=== PATIENT | male | born 1950 | race Caucasian/White ===

== ENCOUNTER → 2017-03-13 | Outpatient (CLI) | payer MEDICARE, OTHER ==
[~2017-03-13] MED LIST: ASPI-496 PO; ENAL5TAB PO; METH40TA3 PO
[2017-03-13 16:22] LABS: ASPARTATE AMINO TRANSFERASE 21 U/L (15-37); BLOOD UREA NITROGEN 16 mg/dL (7-18)
== END | disposition home or self-care (01) ==
LOC: STAR 15:10
PROVIDERS: ATTEND Internal Medicine Geriatric Medicine
DX: Z01.818 Encounter for other preprocedural examination (principal); K63.5 Polyp of colon
CPT/HCPCS: 36415; 80053; 93005

== ENCOUNTER 2017-03-17 08:04 | Day surgery (SDC) | payer MEDICARE, OTHER ==
[~2017-03-17] VITALS: Ht 180.3 cm; Wt 98.0 kg
[2017-03-17] MEDS ORDERED: LIDOCAINE 1%, 2ML ONE (08:42)
[2017-03-17] MEDS ORDERED: INDOCYANINE GREEN 25 MG VIAL ONE (08:43)
[2017-03-17] MEDS ORDERED: EPINEPHRINE SYRINGE 0.1 MG/ML, 10ML ONE (08:43)
[2017-03-17] MEDS ORDERED: FENTANYL PF 100 MCG/2ML ONE ×3 (08:55→10:51)
[2017-03-17] MEDS ORDERED: morphine SULFATE/PF 1 MG/ML, 10ML ONE (08:55)
[2017-03-17] MEDS ORDERED: BACITRACIN 50,000 UNIT ONE (08:56)
[2017-03-17] MEDS ORDERED: BUPIVACAINE/PF 0.5% ONE (08:56)
[2017-03-17] MEDS ORDERED: THROMBIN 5,000 UNIT VIAL TP ONE (08:56)
[2017-03-17] MEDS ORDERED: BUPIVACAINE/PF 0.25% ONE (08:57)
[2017-03-17] MEDS ORDERED: VANCOMYCIN 1,000 MG ONE (08:57)
[2017-03-17] MEDS ORDERED: EPINEPHRINE 1 MG/ML, 1ML ONE (08:57)
[2017-03-17] MEDS ORDERED: LIDOCAINE/PF 1%, 30ML ONE (09:02)
[2017-03-17] MEDS ORDERED: LACTATED RINGERS 1,000 ML IV SCH (09:06)
[2017-03-17] MEDS ORDERED: MIDAZOLAM 1 MG/ML, 2ML ONE ×4 (09:07→10:51)
[2017-03-17] MEDS ORDERED: SCOPOLAMINE PATCH, 1.5MG PATCH.TD72 TD ONE ×2 (09:08→10:50)
[2017-03-17] MEDS ORDERED: FENTANYL PF 250 MCG/5ML ONE ×2 (09:08→10:50)
[2017-03-17] MEDS ORDERED: LIDOCAINE 1%, 2ML SQ PRN (09:30)
[2017-03-17] MEDS ORDERED: MEPERIDINE/PF 25MG/0.5ML IVPush PRN ×2 (10:30→11:30)
[2017-03-17] MEDS ORDERED: ACETAMINOPHEN 325 MG TABLET PO PRN ×2 (10:30→11:30)
[2017-03-17] MEDS ORDERED: PROMETHAZINE 25 MG/ML, 1ML IV PRN (10:30)
[2017-03-17] MEDS ORDERED: OXYcodone 5 MG/5 ML ORAL.SOL UDC PO PRN ×2 (10:30→11:30)
[2017-03-17] MEDS ORDERED: ONDANSETRON 2MG/ML, 2ML IVPush PRN ×2 (10:30→11:30)
[2017-03-17] MEDS ORDERED: hydrALAzine 20 MG/ML, 1ML IV PRN (10:30)
[2017-03-17] MEDS ORDERED: HYDROmorphone 1 MG/ML, 1ML IV PRN ×2 (10:30→11:30)
[2017-03-17] MEDS ORDERED: FENTANYL PF 100 MCG/2ML IV PRN ×2 (10:30→11:30)
[2017-03-17] MEDS ORDERED: LABETALOL 5MG/ML, 20ML IV PRN (10:30)
[2017-03-17] MEDS ORDERED: KETOROLAC 30 MG/1 ML IV PRN (11:30)
[2017-03-17] MEDS ORDERED: KETAMINE 10 MG/ML, 20ML ONE (15:54)
[2017-03-17] MEDS ORDERED: PROPOFOL 10 MG/ML, 50ML ONE (15:54)
== END 2017-03-17 12:35 ==
LOC: OUT 08:04
PROVIDERS: ATTEND Internal Medicine Geriatric Medicine
DX: Z09 Encounter for follow-up examination after completed treatment for conditions other than malignant neoplasm (principal); D12.2 Benign neoplasm of ascending colon; D12.3 Benign neoplasm of transverse colon; D12.4 Benign neoplasm of descending colon; D12.5 Benign neoplasm of sigmoid colon; I10 Essential (primary) hypertension; F17.200 Nicotine dependence, unspecified, uncomplicated; Z87.19 Personal history of other diseases of the digestive system; Z79.82 Long term (current) use of aspirin
CPT/HCPCS: 45385; 45390; 88305; J0171; J2250; J2274; J2704; J3010; J3490; J7120; J3370

== ENCOUNTER 2017-04-28 07:36 | Day surgery (SDC) | payer MEDICARE ==
[~2017-04-28] VITALS: Ht 180.3 cm; Wt 98.9 kg
[2017-04-28] MEDS ORDERED: LACTATED RINGERS 1,000 ML IV SCH (08:58)
[2017-04-28] MEDS ORDERED: LIDOCAINE 1%, 2ML SQ PRN (09:00)
[2017-04-28 09:01] VITALS: BP 143/89
[2017-04-28] MEDS ORDERED: LIDOCAINE 1%, 2ML ONE (09:18)
[2017-04-28] MEDS ORDERED: EPINEPHRINE SYRINGE 0.1 MG/ML, 10ML ONE (11:08)
[2017-04-28] MEDS ORDERED: PROPOFOL 10 MG/ML, 50ML ONE (12:27)
[2017-04-28] MEDS ORDERED: LABETALOL 5MG/ML, 20ML IV PRN (14:00)
[2017-04-28] MEDS ORDERED: MEPERIDINE/PF 25MG/0.5ML IVPush PRN (14:00)
[2017-04-28] MEDS ORDERED: hydrALAzine 20 MG/ML, 1ML IV PRN (14:00)
[2017-04-28] MEDS ORDERED: ONDANSETRON 2MG/ML, 2ML IVPush PRN (14:00)
[2017-04-28] MEDS ORDERED: METOCLOPRAMIDE 5 MG/ML, 2ML IV PRN (14:00)
[2017-04-28] MEDS ORDERED: MIDAZOLAM 1 MG/ML, 2ML IV PRN (14:00)
[2017-04-28] MEDS ORDERED: HYDROmorphone 1 MG/ML, 1ML IV PRN (14:00)
[2017-04-28] MEDS ORDERED: FENTANYL PF 100 MCG/2ML IV PRN (14:00)
[2017-04-28] MEDS ORDERED: EPHEDRINE 50 MG/ML, 1ML IVPush PRN (14:00)
[2017-04-28] MEDS ORDERED: OXYcodone 5 MG/5 ML ORAL.SOL UDC PO PRN (14:00)
[2017-04-28] MEDS ORDERED: ALBUTEROL SULFATE 2.5 MG/3 ML NPPB PRN (14:00)
== END 2017-04-28 14:25 ==
LOC: OUT 07:36
PROVIDERS: ATTEND Internal Medicine Geriatric Medicine
DX: Z08 Encounter for follow-up examination after completed treatment for malignant neoplasm (principal); D12.2 Benign neoplasm of ascending colon; D12.3 Benign neoplasm of transverse colon; D12.4 Benign neoplasm of descending colon; D12.5 Benign neoplasm of sigmoid colon; F17.200 Nicotine dependence, unspecified, uncomplicated; I10 Essential (primary) hypertension; Z86.010 Personal history of colon polyps; Z72.89 Other problems related to lifestyle
CPT/HCPCS: 45385; 88305; J2704; J7120

== ENCOUNTER → 2017-07-31 | Outpatient (CLI) | payer MEDICARE | END | disposition home or self-care (01) | LOC: CFH 08:34 | PROVIDERS: ATTEND Specialist | DX: B18.2 Chronic viral hepatitis C (principal) | CPT/HCPCS: 76700 ==

== ENCOUNTER → 2018-12-10 | Outpatient (CLI) | payer MEDICARE | END | disposition home or self-care (01) | LOC: CFH 09:21 | PROVIDERS: ATTEND Nurse Practitioner | DX: Z12.2 Encounter for screening for malignant neoplasm of respiratory organs (principal); R91.1 Solitary pulmonary nodule; I25.10 Atherosclerotic heart disease of native coronary artery without angina pectoris; F17.210 Nicotine dependence, cigarettes, uncomplicated | CPT/HCPCS: G0297 ==

== ENCOUNTER 2020-06-02 17:56 | Emergency (ER) | payer MEDICARE ==
[~2020-06-02] VITALS: Ht 180.3 cm; Wt 105.2 kg
[~2020-06-02 17:56] MED LIST changes: -ENAL5TAB PO; +ENAL5TAB10 PO; +OXYC-302 PO
--- NOTE | 2020-06-02 18:29 | NUR ---
PT WITH C/O RLQ PAIN BEGINNIN 2PM YESTERDAY, INCREASED TODAY. PT DENIES V/D. PT WITH C/O NAUSEA. PT TO BP, CONT PULSE OX. ERMD IN TO EVAL PT, AWAITING ORDERS
[2020-06-02] MEDS ORDERED: SODIUM CHLORIDE 0.9% 1,000 ML IV ONE (18:30)
[2020-06-02] MEDS ORDERED: HYDROmorphone 1 MG/ML, 1ML INJ IVPush PRN (18:30)
[2020-06-02] MEDS ORDERED: ONDANSETRON 2MG/ML, 2ML IVPush ONE (18:30)
[2020-06-02] MEDS ORDERED: HYDROmorphone 1 MG/ML, 1ML INJ ONE (18:37)
[2020-06-02] MEDS ORDERED: ONDANSETRON 2MG/ML, 2ML ONE (18:37)
--- NOTE | 2020-06-02 18:42 | NUR ---
PIV INITIATED, PT MEDICATED PER OCT. 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
[2020-06-02 18:52] LABS: BASOPHILS # (AUTO) 0.02 x10^3/uL (0-0.1); BASOPHILS % (AUTO) 0 % (0-1); EOSINOPHILS # (AUTO) 0.07 x10^3/uL (0-0.4); EOSINOPHILS % (AUTO) 1 % (1-7); LYMPHOCYTES # (AUTO) 1.01 x10^3/uL (1-3.4); LYMPHOCYTES % (AUTO) 9 % (22-44); MD NO; MEAN CORPUSCULAR HEMOGLOBIN 30.5 pg (27.5-34.5); MEAN CORPUSCULAR HGB CONC 33.2 g/dL (33.2-36.2); MEAN PLATELET VOLUME 7.6 fL (7.4-10.4); MONOCYTES # (AUTO) 0.92 x10^3/uL (0.2-0.8); MONOCYTES % (AUTO) 9 % (2-9); NEUTROPHILS # (AUTO) 8.63 x10^3/uL (1.8-6.8); NEUTROPHILS % (AUTO) 81 % (42-75); PLATELET COUNT 229 x10^3/uL (130-400); RED BLOOD COUNT 5.17 x10^6/uL (4.38-5.82); RED CELL DISTRIBUTION WIDTH 13.7 % (9.4-14.8)
[2020-06-02] MEDS ORDERED: OMNIPAQUE 350 MG/ML, 100ML BOTTLE ONE (19:00)
[2020-06-02 19:01] LABS: ALANINE AMINOTRANSFERASE 22 U/L (12-78); ALBUMIN 3.8 g/dL (3.4-5.0); ANION GAP 5 mmol/L (5-15); CALCIUM 9.3 mg/dL (8.5-10.1); CHLORIDE 96 mmol/L (98-107); CREATININE 0.89 mg/dL (0.7-1.3)
--- NOTE | 2020-06-02 19:01 | NUR ---
BEDSIDE REPORT FROM TIMUR RN, PT RESTING ON GURNEY TALKING ON PHONE TO DAUGHTER, PT REPORTS PAIN 03/09, VSS, SON AT BS. ISAMAR, R[place].
[2020-06-02 19:04] LABS: ALKALINE PHOSPHATASE 117 U/L (45-117); BILIRUBIN,TOTAL 0.8 mg/dL (0.2-1.0); TOTAL PROTEIN 7.7 g/dL (6.4-8.2)
--- NOTE | 2020-06-02 19:07 | NUR ---
CT CALLED REGARDING IV PLACMENT, SAID THEY WOULD TRY TO USE IT, PT INFORMED, NAD, CALL LIGHT ON LAP, DENIES ADDITIONAL NEEDS AT THIS TIME. WCTM.
--- NOTE | 2020-06-02 19:52 | NUR ---
ASSIST RN: URINE SAMPLE OBTAINED AND SENT TO LAB.
[2020-06-02 20:02] LABS: MICROSCOPIC AUTO
[2020-06-02] MEDS ORDERED: METHYLNALTREXONE 12 MG/0.6 ML SYR SQ ONE ×2 (20:53→21:00)
[2020-06-02 20:58] VITALS: BP 130/50
--- NOTE | 2020-06-02 21:00 | NUR ---
PT AMBULATED TO AND FROM RESTROOM WITH A SMOOTH AND STEADY GAIT, NAD, DENIES ADDITIONAL NEEDS AT THIS TIME. WCTM. SON AT BS. PT GETTING READY FOR DC.
== END 2020-06-02 21:23 | disposition home or self-care (01) ==
LOC: ED 20:30
DX: K81.9 Cholecystitis, unspecified (principal); R59.1 Generalized enlarged lymph nodes; K59.00 Constipation, unspecified; Z85.038 Personal history of other malignant neoplasm of large intestine
CPT/HCPCS: 36415; 74177; 80053; 81001; 83690; 85025; 96361; 96372; 96374; 96375; 99285; J1170; J2405; J7030; Q9967

== ENCOUNTER → 2020-07-03 | Outpatient (CLI) | payer MEDICARE | END | disposition home or self-care (01) | LOC: CFH 13:53 | PROVIDERS: ATTEND Physician Assistant | DX: R91.1 Solitary pulmonary nodule (principal); N20.0 Calculus of kidney; I25.10 Atherosclerotic heart disease of native coronary artery without angina pectoris | CPT/HCPCS: 71250 ==

== ENCOUNTER 2020-09-27 15:38 | Emergency (ER) | payer MEDICARE ==
[~2020-09-27] VITALS: Ht 180.3 cm; Wt 107.8 kg
[~2020-09-27 15:38] MED LIST changes: -OXYC-302 PO; +OXYC1TAB14 PO
--- NOTE | 2020-09-27 16:04 | NUR ---
CC OF R SHOULDER/ARM PAIN AND SWELLING FROM GLF FALL ABOUT 90 MIN AGO. PT SLIPPED ON ROCKS HIDDEN UNDER SNOW. PT STATES PAIN IS 5/10 AT REST AND 10/10 WITH MOVEMENT. CMS INTACT, PT ABLE TO SQUEEZE FINGERS EQUALLY BILAT. DENIES HITTING HEAD OR LOC, A&OX4. FRIEND AT BEDSIDE
[2020-09-27 17:29] VITALS: BP 161/65
== END 2020-09-27 17:31 | disposition home or self-care (01) ==
LOC: ED 16:20
DX: S42.211A Unspecified displaced fracture of surgical neck of right humerus, initial encounter for closed fracture (principal); F17.200 Nicotine dependence, unspecified, uncomplicated; Z85.9 Personal history of malignant neoplasm, unspecified; W01.0XXA Fall on same level from slipping, tripping and stumbling without subsequent striking against object, initial encounter; Y93.89 Activity, other specified; Y92.89 Other specified places as the place of occurrence of the external cause; Y99.8 Other external cause status
CPT/HCPCS: 99283

== ENCOUNTER 2020-10-02 22:00 | Emergency (ER) | payer MEDICARE ==
[~2020-10-02] VITALS: Ht 180.3 cm; Wt 60.0 kg
--- NOTE | 2020-10-02 22:16 | NUR ---
ERP AT BEDSIDE
[2020-10-02 22:28] VITALS: BP 159/81
--- NOTE | 2020-10-02 22:36 | NUR ---
PT ABLE TO AMBULATE WITHOUT DIFFICULTY, PT STATES GETTING TIRED EASILY, WHEELED OUT WITH WHEELCHAIR PER REQUEST. PT HAS FRIEND TO HELP HIM AT HOME, BP LOWER IN HOSP, DENIES HEADACHE, N/V, PHOTOPHOBIA AT THIS TIME.
== END 2020-10-02 22:43 | disposition home or self-care (01) ==
LOC: ED 22:15
DX: I10 Essential (primary) hypertension (principal); F17.200 Nicotine dependence, unspecified, uncomplicated
CPT/HCPCS: 99281